=== PATIENT | female | born 1945 | race Caucasian/White ===

== ENCOUNTER → 2025-04-05 10:24 | Outpatient (BNVA) | payer MEDICARE, SELFPAY | PROVIDERS: Visit Provider Dermatology | DX: L81.4 Other melanin hyperpigmentation (principal); L82.1 Other seborrheic keratosis; S20.462A Insect bite (nonvenomous) of left back wall of thorax, initial encounter; X58.XXXA Exposure to other specified factors, initial encounter; Z08 Encounter for follow-up examination after completed treatment for malignant neoplasm; Z85.828 Personal history of other malignant neoplasm of skin; D48.5 Neoplasm of uncertain behavior of skin; L57.0 Actinic keratosis | CPT/HCPCS: 11102; 17000; 99203 ==

== ENCOUNTER → 2025-05-18 13:57 | Outpatient (BNVA) | payer MEDICARE, SELFPAY | PROVIDERS: PCP Nurse Practitioner; Visit Provider Nurse Practitioner | DX: N39.0 Urinary tract infection, site not specified (principal) | CPT/HCPCS: 81000; 87086 ==

== ENCOUNTER → 2025-07-11 09:04 | Outpatient (BNVA) | payer MEDICARE, SELFPAY | PROVIDERS: PCP Nurse Practitioner; Visit Provider Dermatology | DX: D18.01 Hemangioma of skin and subcutaneous tissue (principal); Z85.828 Personal history of other malignant neoplasm of skin; L81.4 Other melanin hyperpigmentation; L57.0 Actinic keratosis; S20.462A Insect bite (nonvenomous) of left back wall of thorax, initial encounter; Z08 Encounter for follow-up examination after completed treatment for malignant neoplasm; X58.XXXA Exposure to other specified factors, initial encounter | CPT/HCPCS: 17000; 99213 ==